=== PATIENT | female | born 1990 | race Caucasian/White ===

== ENCOUNTER 2016-05-20 17:48 | Emergency (ER) | payer MEDICAID ==
[~2016-05-20] VITALS: Ht 157.5 cm; Wt 55.0 kg
[2016-05-20 19:06] VITALS: BP 110/73
== END 2016-05-20 20:35 | disposition home or self-care (01) ==
LOC: ER 17:49
DX: R07.89 Other chest pain (principal); V43.62XA Car passenger injured in collision with other type car in traffic accident, initial encounter; Y92.488 Other paved roadways as the place of occurrence of the external cause
CPT/HCPCS: 71010; 81025; 99283

== ENCOUNTER 2016-09-27 18:07 | Emergency (ER) | payer MEDICAID | END 2016-09-27 21:10 | disposition left against medical advice (07) | LOC: ER 20:35 | DX: O21.9 Vomiting of pregnancy, unspecified (principal); Z53.21 Procedure and treatment not carried out due to patient leaving prior to being seen by health care provider ==